=== PATIENT | male | born 2005 | race Caucasian/White ===

== ENCOUNTER 2024-09-15 17:24 | Emergency (ER) | payer SELFPAY ==
[2024-09-15 17:49] LABS: Hematocrit 48.5 % (39.0-52.0); Hemoglobin 18.1 g/dL (13.0-18.0); Mean Corp Hgb Conc. 37.3 g/dL (33.0-37.0); Mean Corpuscular Volume 84.6 fL (80.0-94.0); Nucleated Red Blood Cells % 0 % (-); Platelet Count 138 10^3/uL (130-400); Red Cell Dist. Width 11.4 % (11.5-14.5)
[2024-09-15 18:03] LABS: AST (SGOT) 25 U/L (17-59); Albumin 6.0 g/dl (3.5-5.0); Alkaline Phosphatase 67 U/L (38-126); Blood Urea Nitrogen 15 mg/dl (9-20); Calcium 10.7 mg/dl (8.4-10.2); Carbon Dioxide 14 mmol/L (22-30); Chloride 109 mmol/L (98-107); Glucose 168 mg/dl (70-99); Lipase 370 U/L (23-300); Potassium 3.8 mmol/L (3.5-5.1); Total Protein 9.0 g/dl (6.3-8.2); eGFR > 60.00
[2024-09-15 18:04] LABS: Sodium 140 mmol/L (135-145)
[2024-09-15 18:38] LABS: ALT (SGPT) 21 U/L (0-50)
[2024-09-15 20:07] VITALS: BP 137/71
[2024-09-15 20:08] VITALS: BMI 22.0
[2024-09-15] MEDS: NSS 1000 IV (20:52)
[2024-09-15] MEDS: REGLAN 10 MG IV (20:54)
[2024-09-15] MEDS: BENADRYL 25 MG IV (20:55)
[2024-09-15 22:37] VITALS: BP 150/56
[2024-09-15] MEDS: HALDOL 3 MG IM (22:50)
[2024-09-15 23:19] LABS: Blood Urea Nitrogen 15 mg/dl (9-20); Calcium 9.8 mg/dl (8.4-10.2); Carbon Dioxide 25 mmol/L (22-30); Chloride 107 mmol/L (98-107); Estimated Creatinine Clearance > 125 ml/min; Glucose 130 mg/dl (70-99); Potassium 4.5 mmol/L (3.5-5.1); Sodium 139 mmol/L (135-145); eGFR > 60.00
--- NOTE | 2024-09-16 00:03 | ED.GENMED ---
History of Present Illness
General
Chief Complaint: Abdominal Pain
Source: patient
Time Seen by Provider: 09/15/24 20:02
History of Present Illness
History of Present Illness:
Note:
CHIEF COMPLAINT(S)
Abdominal pain and nausea.
HISTORY OF PRESENT ILLNESS
The patient is a 18-year-old male presenting with abdominal pain and nausea that began around 11:00 AM today. He describes the sensation as his stomach feeling upset and 'cooking up.' He denies any fever, blood in vomit, or stools. The patient
reports having diarrhea but no blood in the stool. There is no known exposure to sick contacts.
During the conversation, the patient stated he has not taken medication currently but has a history of using Vyvanse, which he has discontinued for an unspecified time. The patient admits to using medical marijuana, approximately two joints every
three days. He mentions using less frequently than every day. There is tenderness noted across the middle abdomen and a specific tenderness on the right side upon physical touch.
ADDITIONAL HISTORY OBTAINED FROM SOURCES OTHER THAN THE PATIENT
Per family members, the patient experienced profuse sweating and appeared dehydrated earlier. He reportedly passed out twice in the car and once in the living room. There were no signs of fever or urinary complaints.
MEDICATIONS
Historically used Vyvanse; currently uses medical marijuana approximately two joints every three days.
SOCIAL HISTORY
The patient uses medical marijuana, approximately two joints every three days.
REVIEW OF SYSTEMS
- Gastrointestinal: Abdominal pain, diarrhea, no blood in stool or vomit.
- Constitutional: No fever, episodes of diaphoresis.
- Neurological: Episodes of syncope.
PHYSICAL EXAM
General: Alert and anxious, no acute distress.
Abdomen: Soft, mild diffuse tenderness, more pronounced on the right side.
Other systems: Normal findings in skin, head, neck, oral mucosa, cardiovascular, respiratory, back, musculoskeletal, neurological, and psychiatric exams as specified in the default physical exam.
PROBLEM LIST
Acute Problems:
- Abdominal pain
- Diarrhea
- Nausea
- Syncope episodes
PLAN
The patient will receive fluids and medication for nausea. Laboratory tests will be ordered to assess the current condition. Monitoring and reassessment will occur once interventions are applied to observe any changes or relief in symptoms.
DIFFERENTIAL DIAGNOSIS
The Differential Diagnosis includes, in no particular order and is not limited to:
1. Viral gastroenteritis
2. Cannabis hyperemesis syndrome
3. Appendicitis
4. Gastroesophageal reflux disease
5. Peptic ulcer disease
6. Irritable bowel syndrome
7. Food poisoning
8. Constipation
9. Cholecystitis
10. Anxiety-related gastrointestinal symptoms
Disposition:
SUMMARY OF ENCOUNTER
The 18-year-old male patient presented with intractable vomiting and was mostly retching upon evaluation. The patient reports daily marijuana use, leading to a suspicion of Cannabinoid Hyperemesis Syndrome. The abdominal exam was benign, and acute
appendicitis was not suspected, negating the need for CT imaging. Upon reassessment after IV fluids, the patient felt much better, and outpatient management was deemed reasonable. Discussions about the patients care were held at the bedside, and the
patient was advised to return if symptoms worsen.
ASSESSMENT
The patient is suspected to have Cannabinoid Hyperemesis Syndrome based on daily marijuana usage and presenting symptoms.
PLAN
The plan includes outpatient management with counseling on the importance of abstaining from marijuana use to address suspected Cannabinoid Hyperemesis Syndrome. The patient has been instructed to return for any worsening symptoms.
INDEPENDENT REVIEW OF LABS AND INTERPRETATION OF TESTS
My independent review of CBC shows a slight leukocytosis with a white blood cell count of 12.3. My independent review of CMP shows the initial metabolic acidosis resolved after IV fluids, with repeat results being normal. My independent review of
hepatic function indicates that AST and ALT levels are normal.
PATIENT EDUCATION AND COUNSELING
The patient was counseled on the importance of abstaining from marijuana use, as it is suspected to be related to the Cannabinoid Hyperemesis Syndrome.
MEDICATION RECONCILIATION
Ondansetron was prescribed for outpatient care.
MEDICAL DECISION MAKING
- Number and Complexity of Problems Addressed: Chronic conditions affecting care include a history of daily marijuana use. Differential diagnosis includes Cannabinoid Hyperemesis Syndrome and not acute appendicitis.
- Data:
- Category 1: Tests and documents reviewed include CBC and CMP.
- Category 2: Clinical information was obtained from an independent historian.
- Risk: Consideration of Admission/Observation: Escalation of care including admission/observation was considered given the complexity and risk of the patients presenting complaint. However, ultimately I feel the patient is safe for outpatient
management with close follow-up. Reasoning: Work-up is reassuring, does not reveal any acute life/organ threatening processes, patients symptoms well controlled upon reevaluation, reexamination is reassuring, vitals are stable, patient agreeable
with discharge, reliable for follow-up.
DIAGNOSIS
Cannabinoid Hyperemesis Syndrome (ICD-10: F12.988).
Phy Exam
Physical Exam
Physical Exam:
.
Course
Orders/Labs/Results
Orders:
Orders
09/15/24 17:28
EKG [Electrocardiogram (*1)] Urgent
Reason for Study: Chest Pain
EKG- Treatment ONCE
09/15/24 17:39
Complete Blood Count/With Diff Urgent
Comprehensive Metabolic Panel Urgent
Lipase Urgent
09/15/24 20:43
0.9% Sodium Chloride 1000 ml [Nss] 1,000 ml IV BOLUS
Diphenhydramine [Benadryl] 25 mg IV NOW STA
Metoclopramide [Reglan] 10 mg IV NOW STA
09/15/24 22:44
Haloperidol Lactate [Haldol] 3 mg IM NOW STA
09/15/24 22:53
Basic Metabolic Panel Urgent
Abnormal Lab Results
09/15/24 09/15/24
17:39 22:53
WBC 12.3 H 10^3/uL
(4.8-10.8)
Hgb 18.1 H g/dL
(13.0-18.0)
MCH 31.6 H pg
(27.0-31.0)
MCHC 37.3 H g/dL
(33.0-37.0)
RDW 11.4 L %
(11.5-14.5)
Abs Immat Gran (auto) 0.1 H 10^3/uL
(0-0.05)
Absolute Neuts (auto) 10.8 H 10^3/uL
(1.4-6.5)
Absolute Lymphs (auto) 0.8 L 10^3/uL
(1.2-3.4)
Neutrophils % 87.7 H %
(42.2-75.2)
Lymphocytes % 6.4 L %
(20.5-51.1)
Chloride 109 H mmol/L
(98-107)
Carbon Dioxide 14 L* mmol/L
(22-30)
Glucose 168 H mg/dl 130 H mg/dl
(70-99) (70-99)
Calcium 10.7 H mg/dl
(8.4-10.2)
Total Protein 9.0 H g/dl
(6.3-8.2)
Albumin 6.0 H g/dl
(3.5-5.0)
Lipase 370 H U/L
(23-300)
09/15/24 17:39
09/15/24 22:53
Vital Signs
Initial and Last Documented VS:
Initial Vital Signs
Temp Pulse Resp BP Pulse Ox
97.7 F 56 20 137/71 98
09/15/24 20:07 09/15/24 20:07 09/15/24 20:07 09/15/24 20:07 09/15/24 20:07
Last Documented Vital Signs
Temp Pulse Resp BP Pulse Ox
98.4 F 67 20 150/56 99
09/15/24 22:37 09/15/24 22:37 07/16/25 22:37 09/15/24 22:37 09/15/24 22:37
*Pulse Oximetry
SaO2: 99
Oxygen Mode of Delivery: Room air
Patient hypoxic: no
*Critical Care Note
Total Time (30-74mins, 75-104mins- exclusive of procedures): Not Applicable
ED Attending Note
-
Portions of this chart may have been created with voice recognition software.� Occasional wrong word or��sound alike� substitutions may have occurred due to the inherent limitations of voice recognition software.
Discharge Plan
Departure
Patient Disposition: Home (Routine Discharge)
Date of Disposition: 09/16/24
Time of Disposition: 00:03
Patient with high blood pressure during this ER visit?: Yes
Discharge Problem:
Cannabinoid hyperemesis syndrome
Instructions: Nausea and Vomiting, Adult (DC)
Prescriptions:
New
ondansetron 4 mg tablet,disintegrating
4 mg PO TID PRN (Reason: nausea and vomiting) Qty: 20 0RF
Referrals:
UNKNOWN - PT DOES,NOT KNOW [Family Provider]
Activity Restrictions/Additional Instructions:
Please stop smoking marijuana. Return needed for fevers, worsening symptoms, abdominal pain, tractable vomiting, blood in vomit, blood in stool or any other concerns. Please see your doctor in the next 3 to 5 days for follow-up and reevaluation.
Please drink plenty of fluids.
Interventions
Interventions:
*Risk Screen - Suicide Last Done: 09/15/24 17:28
*General Assessment Last Done: 09/15/24 17:28
*Neglect/Abuse Screening Last Done: 09/15/24 17:28
*ED- Fall Risk Assessment Last Done: 09/15/24 20:08
*ED COVID-19 Vaccine History Last Done: 09/15/24 17:28
FW-Sgvoqb-Liizdijvys Assessment Last Done: 09/15/24 20:09
Discharge Date and Time
Print Language: TAJIK
== END 2024-09-16 00:33 | disposition home or self-care (01) ==
LOC: EMR 17:24
PROVIDERS: EMERGENCY PHYSICIAN Emergency Medicine
DX: R11.10 Vomiting, unspecified (principal); R10.9 Unspecified abdominal pain; R11.0 Nausea; Z79.899 Other long term (current) drug therapy; Z91.148 Patient's other noncompliance with medication regimen for other reason
CPT/HCPCS: 99283; 96374; 96375; 96372; 96361; 80048; 80053; 83690; 85025; 93005